=== PATIENT | female | born 1990 | race Caucasian/White ===

== ENCOUNTER 2017-12-09 19:54 | Emergency (ER) | payer OTHER ==
[~2017-12-09] VITALS: Ht 165.1 cm; Wt 72.6 kg
[~2017-12-09 19:54] MED LIST: ALPR1 PO; Bactrim Ds Tab1 EACH PO; CLON.1 PO; Cymbalta60 MG PO; DENIES; DULO60; ESCI10 PO; Lexapro 10 mg T10 MG PO; Minipress1 MG PO; PARO20 PO; PAXIL40 MG PO; PRAZ1 PO; PRAZ5; PRAZ5 PO; PROM25 PO; PROM6.25SY PO; Percocet 5-3251 EACH PO; Pyridium200 MG PO; QUET25 PO; TRAZ100 PO; Vistaril25 MG PO; Zithromax250 MG PO; Zofran Odt4 MG SL; [UNRECOGNIZED DRUG - REMARK] PO
[2017-12-09] MEDS ORDERED: ESCI10 PO (20:19)
[2017-12-09] MEDS ORDERED: AMPDEX10CR PO (22:27)
== END 2017-12-10 00:15 | disposition home or self-care (01) ==
LOC: ER 19:54
DX: F41.0 Panic disorder [episodic paroxysmal anxiety] (principal); F31.9 Bipolar disorder, unspecified; Z79.899 Other long term (current) drug therapy; Z87.891 Personal history of nicotine dependence
CPT/HCPCS: 93005; 93010; 99284

== ENCOUNTER 2018-02-28 12:20 | Emergency (ER) | payer OTHER ==
[~2018-02-28] VITALS: Ht 165.1 cm; Wt 59.0 kg
[~2018-02-28 12:20] MED LIST changes: +AMPDEX10CR PO
[2018-02-28] MEDS ORDERED: Zofran4 MG PO (12:39)
[2018-02-28 12:41] LABS: Source, Urine Clean Catch
[2018-02-28 12:45] LABS: Bilirubin, Urine Neg (Neg); Blood, Urine Neg (Neg); Glucose Qualitative, Urine Neg (Neg); Ketones, Urine Neg (Neg); Leukocyte Esterase, Urine Neg (Neg); Nitrite, Urine Neg (Neg); Protein, Urine Neg (Neg); Specific Gravity, Urine 1.015 (1.003-1.022); Urobilinogen, Urine NORM (Normal)
[2018-02-28 13:17] LABS: Appearance, Urine Clear (Clear); Color, Urine Yellow (P-Yellow)
== END 2018-02-28 12:43 | disposition home or self-care (01) ==
LOC: ER 12:20
PROVIDERS: Physician Assistant
DX: Z32.02 Encounter for pregnancy test, result negative (principal); R11.0 Nausea; F17.200 Nicotine dependence, unspecified, uncomplicated
CPT/HCPCS: 81003; 81025; 99283

== ENCOUNTER 2018-07-16 13:34 | Emergency (ER) | payer OTHER ==
[~2018-07-16] VITALS: Ht 167.6 cm; Wt 59.0 kg
[~2018-07-16 13:34] MED LIST changes: +Flonase 0.05% N16 GM; +Verotin-Gr Cap1 EACH PO; +Zofran4 MG PO
[2018-07-16 13:59] LABS: BASOPHILS ABSOLUTE AUTO 0.02 K/mm3 (0.00-0.23); BASOPHILS PERCENT AUTO 0 % (0-2); EOSINOPHILS ABSOLUTE AUTO 0.03 K/mm3 (0.00-0.68); EOSINOPHILS PERCENT AUTO 0 % (0-6); Hematocrit 34.4 % (33.0-51.0); Hemoglobin 11.7 g/dL (11.5-16.0); IMMATURE GRAN ABSOLUTE AUTO 0.04 K/mm3 (0.00-0.10); IMMATURE GRAN PERCENT AUTO 0 % (0-1); LYMPHOCYTES ABSOLUTE AUTO 0.52 K/mm3 (0.84-5.20); LYMPHOCYTES PERCENT AUTO 5 % (21-46); MONOCYTES ABSOLUTE AUTO 0.28 K/mm3 (0.16-1.47); MONOCYTES PERCENT AUTO 3 % (4-13); Mean Corpuscular HGB 31.7 pg (26.0-34.0); Mean Corpuscular Volume 93 fL (80-100); Mean Platelet Volume 9.2 fL (9.1-12.4); NEUTROPHILS ABSOLUTE AUTO 9.96 K/mm3 (1.96-9.15); NEUTROPHILS PERCENT AUTO 92 % (41-73); Platelet Count 252 K/mm3 (150-400); RDW Coefficient Variation 12.9 % (11.7-14.2); RDW Standard Deviation 44.2 fL (35.1-46.3); Red Blood Cell Count 3.69 M/mm3 (3.80-5.20); White Blood Cell Count 10.85 K/mm3 (4.00-11.30)
[2018-07-16 14:20] LABS: Alanine Aminotransfer (ALT/SGP 23 U/L (12-78); Albumin, Blood 3.3 g/dL (3.4-5.0); Albumin/Globulin Ratio 0.8 (0.8-1.8); Alk Phos 39 U/L (50-136); Anion Gap 11 mmol/L (6-16); Aspartate Aminotrans (AST/SGOT 15 U/L (12-37); Bilirubin, Total 0.7 mg/dL (0.1-1.0); Blood Urea Nitrogen 9 mg/dL (8-24); CO2, Blood 22 mmol/L (21-32); Calcium, Blood 8.1 mg/dL (8.5-10.1); Chloride, Blood 104 mmol/L (98-108); Globulin, Blood 3.9 g/dL (2.2-4.0); Glomerular Filtration Rate >60 (60-); Glucose, Blood 91 mg/dL (70-99); Potassium, Blood 3.8 mmol/L (3.5-5.5); Sodium, Blood 137 mmol/L (136-145); Total Protein, Blood 7.2 g/dL (6.4-8.2)
[2018-07-16 15:01] LABS: Source, Urine Clean Catch
[2018-07-16 15:11] LABS: Appearance, Urine Cloudy (Clear); Bilirubin, Urine Neg (Neg); Blood, Urine 1+ (Neg); Color, Urine Yellow (P-Yellow); Glucose Qualitative, Urine Neg (Neg); Ketones, Urine 4+ (Neg); Leukocyte Esterase, Urine 3+ (Neg); Nitrite, Urine Neg (Neg); Protein, Urine 2+ (Neg); Urobilinogen, Urine NORM (Normal); pH, Urine 6.5 (5.0-8.0)
[2018-07-16 15:20] LABS: Bacteria Few /hpf; Red Blood Cells, Urine Not Seen /hpf (0-2); Squamous Epithelial Cells Many /hpf (Few)
[2018-07-16] MEDS ORDERED: Zofran4 MG PO (16:24)
[2018-07-16] MEDS ORDERED: Pepcid40 MG PO (16:24)
== END 2018-07-16 17:21 | disposition home or self-care (01) ==
LOC: ER 13:34
PROVIDERS: Emergency Medicine
DX: O99.282 Endocrine, nutritional and metabolic diseases complicating pregnancy, second trimester (principal); E86.0 Dehydration; O21.9 Vomiting of pregnancy, unspecified; O99.342 Other mental disorders complicating pregnancy, second trimester; F31.9 Bipolar disorder, unspecified; F41.9 Anxiety disorder, unspecified; F20.9 Schizophrenia, unspecified; Z3A.19 19 weeks gestation of pregnancy
CPT/HCPCS: 36415; 80053; 81001; 85025; 87086; 96361; 96374; 96375; 99284-25; J2405; J7120

== ENCOUNTER → 2018-11-13 | Outpatient (CLI) | payer OTHER ==
[~2018-11-13] MED LIST changes: +Pepcid40 MG PO
== END | disposition home or self-care (01) ==
LOC: LAB 12:03 → LAB SHORT 12:03
DX: Z34.80 Encounter for supervision of other normal pregnancy, unspecified trimester (principal)
CPT/HCPCS: 87081; 87653

== ENCOUNTER 2018-12-08 06:47 | Inpatient (IN) | payer OTHER ==
[~2018-12-08] VITALS: Ht 167.6 cm; Wt 84.3 kg
[2018-12-08 08:33] LABS: BASOPHILS ABSOLUTE AUTO 0.01 K/mm3 (0.00-0.23); BASOPHILS PERCENT AUTO 0 % (0-2); EOSINOPHILS ABSOLUTE AUTO 0.09 K/mm3 (0.00-0.68); EOSINOPHILS PERCENT AUTO 1 % (0-6); Hemoglobin 11.4 g/dL (11.5-16.0); IMMATURE GRAN ABSOLUTE AUTO 0.02 K/mm3 (0.00-0.10); IMMATURE GRAN PERCENT AUTO 0 % (0-1); LYMPHOCYTES ABSOLUTE AUTO 1.77 K/mm3 (0.84-5.20); LYMPHOCYTES PERCENT AUTO 26 % (21-46); MONOCYTES ABSOLUTE AUTO 0.42 K/mm3 (0.16-1.47); MONOCYTES PERCENT AUTO 6 % (4-13); Mean Corpuscular HGB 29.1 pg (26.0-34.0); Mean Corpuscular HGB Conc 32.6 g/dL (31.5-36.5); Mean Corpuscular Volume 89 fL (80-100); NEUTROPHILS ABSOLUTE AUTO 4.42 K/mm3 (1.96-9.15); NEUTROPHILS PERCENT AUTO 66 % (41-73); Platelet Count 250 K/mm3 (150-400); RDW Coefficient Variation 13.1 % (11.7-14.2); RDW Standard Deviation 42.4 fL (35.1-46.3); Red Blood Cell Count 3.92 M/mm3 (3.80-5.20); White Blood Cell Count 6.73 K/mm3 (4.00-11.30)
[2018-12-08] MEDS ORDERED: CHOL10002 PO (08:38)
[2018-12-08] MEDS ORDERED: IRON150C (08:39)
--- NOTE | 2018-12-09 05:05 | NUR ---
PATIENT REFUSING TO HAVE LABS DRAWN. STATES SHE HAD LABS DRAW BEFORE AND DOESN'T WANT THEM DONE AGAIN.
--- NOTE | 2018-12-09 07:47 | NUR ---
DISCUSSED AND EDUCATED PT ON WHY MORNING LABS ARE DRAWN ON PATIENTS. PT IS NOT WILLING TO GET AM LABS TAKEN. LAB CALLED AND REQUESTED IT BE COMPLETED.
[2018-12-09 08:49] LABS: Hematocrit 33.3 % (33.0-51.0); Mean Corpuscular HGB 29.6 pg (26.0-34.0); Mean Corpuscular Volume 90 fL (80-100); Mean Platelet Volume 10.3 fL (9.1-12.4); Platelet Count 228 K/mm3 (150-400); RDW Standard Deviation 42.3 fL (35.1-46.3); Red Blood Cell Count 3.72 M/mm3 (3.80-5.20); White Blood Cell Count 8.65 K/mm3 (4.00-11.30)
--- NOTE | 2018-12-10 11:20 | NUR ---
CORE NURSE HER TO SEE PATIENT
[2018-12-11] MEDS ORDERED: IBUP800 PO (11:04)
--- NOTE | 2018-12-11 12:30 | NUR ---
Pt declined verbal discharge instructions, states she read printed ones and has no questions. ID bands matched w/nb. Pt d/c'd home ambulatory to care of [facility].
== END 2018-12-11 12:42 | disposition home or self-care (01) | DRG 807 ==
LOC: OBS 06:47 → BC 06:51 → OBS 07:30 → BC 07:32
PROVIDERS: ADMIT Family Medicine
PROC: 10E0XZZ Delivery of Products of Conception, External Approach (ICD-10-PCS; principal; 2018-12-08)
PROC: 3E033VJ Introduction of Other Hormone into Peripheral Vein, Percutaneous Approach (ICD-10-PCS; 2018-12-08)
DX: O80 Encounter for full-term uncomplicated delivery (principal); Z37.0 Single live birth; Z3A.39 39 weeks gestation of pregnancy
CPT/HCPCS: 36415; 85025; 85027; A9270; J1885; J2001; J2405; J2590; J3010; J7120

== ENCOUNTER → 2019-01-30 | Outpatient (CLI) | payer OTHER ==
[~2019-01-30] MED LIST changes: +CHOL10002 PO; +IBUP800 PO; +IRON150C
== END | disposition home or self-care (01) ==
LOC: LAB EV 15:29 → LAB SHORT 15:29
DX: N39.0 Urinary tract infection, site not specified (principal)
CPT/HCPCS: 87086

== ENCOUNTER 2019-02-14 14:11 | Emergency (ER) | payer OTHER ==
[~2019-02-14] VITALS: Ht 165.1 cm; Wt 63.5 kg
[2019-02-14 15:07] LABS: Source, Urine Clean Catch
[2019-02-14 15:22] LABS: Appearance, Urine Hazy (Clear); Bilirubin, Urine Neg (Neg); Blood, Urine Neg (Neg); Color, Urine Yellow (P-Yellow); Glucose Qualitative, Urine Neg (Neg); Ketones, Urine Neg (Neg); Leukocyte Esterase, Urine 1+ (Neg); Nitrite, Urine Neg (Neg); Protein, Urine Neg (Neg); Urobilinogen, Urine NORM (Normal)
[2019-02-14 15:33] LABS: Bacteria Mod /hpf; Red Blood Cells, Urine 0-2 /hpf (0-2); Squamous Epithelial Cells Mod /hpf (Few)
== END 2019-02-14 15:50 | disposition home or self-care (01) ==
LOC: ER 14:11
PROVIDERS: Physician Assistant
DX: S60.042A Contusion of left ring finger without damage to nail, initial encounter (principal); F17.200 Nicotine dependence, unspecified, uncomplicated; Z79.899 Other long term (current) drug therapy; W19.XXXA Unspecified fall, initial encounter
CPT/HCPCS: 73140; 81001; 81025; 87086; 99283-25

== ENCOUNTER 2019-02-23 15:26 | Emergency (ER) | payer OTHER ==
[~2019-02-23] VITALS: Ht 162.6 cm; Wt 59.0 kg
== END 2019-02-23 16:43 | disposition home or self-care (01) ==
LOC: ER 15:26
DX: Z32.02 Encounter for pregnancy test, result negative (principal); F17.200 Nicotine dependence, unspecified, uncomplicated; Z79.899 Other long term (current) drug therapy
CPT/HCPCS: 81025; 99282

== ENCOUNTER 2020-07-17 05:17 | Inpatient (IN) | payer OTHER ==
[~2020-07-17] VITALS: Ht 165.1 cm; Wt 90.9 kg
[2020-07-17] MEDS ORDERED: ONDA4ODT MM (05:54)
[2020-07-17 06:12] LABS: BASOPHILS ABSOLUTE AUTO 0.02 K/mm3 (0.00-0.23); BASOPHILS PERCENT AUTO 0 % (0-2); EOSINOPHILS ABSOLUTE AUTO 0.07 K/mm3 (0.00-0.68); EOSINOPHILS PERCENT AUTO 1 % (0-6); Hematocrit 31.3 % (33.0-51.0); IMMATURE GRAN ABSOLUTE AUTO 0.04 K/mm3 (0.00-0.10); IMMATURE GRAN PERCENT AUTO 1 % (0-1); LYMPHOCYTES PERCENT AUTO 25 % (21-46); MONOCYTES ABSOLUTE AUTO 0.43 K/mm3 (0.16-1.47); MONOCYTES PERCENT AUTO 6 % (4-13); Mean Corpuscular HGB 27.9 pg (26.0-34.0); Mean Corpuscular HGB Conc 31.9 g/dL (31.5-36.5); Mean Corpuscular Volume 87 fL (80-100); NEUTROPHILS ABSOLUTE AUTO 5.23 K/mm3 (1.96-9.15); NEUTROPHILS PERCENT AUTO 68 % (41-73); Platelet Count 255 K/mm3 (150-400); RDW Coefficient Variation 13.6 % (11.7-14.2); RDW Standard Deviation 43.5 fL (35.1-46.3); Red Blood Cell Count 3.58 M/mm3 (3.80-5.20); White Blood Cell Count 7.69 K/mm3 (4.00-11.30)
[2020-07-17 07:04] LABS: U Amphetamine Screen Not Detected; U Barbituate Screen Not Detected; U Benzodiazapine Screen Not Detected; U Buprenorphine Screen Not Detected; U Cannabinoids Screen DETECTED; U Cocaine Screen Not Detected; U Methadone Screen Not Detected; U Methamphetamine Screen Not Detected; U Opiates Screen Not Detected; U Oxycodone Screen Not Detected; U Phencyclidine Screen Not Detected; U Propoxyphene Screen Not Detected
[2020-07-18] MEDS ORDERED: IBU800 MG PO (09:58)
--- NOTE | 2020-07-18 11:39 | NUR ---
ASSIST DEMONSTRATED FOOT BALL AND CROSS LATCH , WE WOKE BABY AND PLACED HER AT BREAST MOM WITH LOTS OF QUESIONS.
[2020-07-18 13:09] LABS: Hematocrit 31.2 % (33.0-51.0); Hemoglobin 10.1 g/dL (11.5-16.0); Mean Corpuscular HGB 28.3 pg (26.0-34.0); Mean Corpuscular HGB Conc 32.4 g/dL (31.5-36.5); Mean Corpuscular Volume 87 fL (80-100); Mean Platelet Volume 10.2 fL (9.1-12.4); Platelet Count 212 K/mm3 (150-400); RDW Coefficient Variation 13.7 % (11.7-14.2); RDW Standard Deviation 43.7 fL (35.1-46.3); Red Blood Cell Count 3.57 M/mm3 (3.80-5.20); White Blood Cell Count 11.33 K/mm3 (4.00-11.30)
--- NOTE | 2020-07-19 12:36 | NUR ---
DISCHARGE MOTHER EDUCATED ON MATERNAL AND DISCHARGE INSTRUCTIONS AND VERBALIZED AN UNDERSTANDING. HARD RX FOR MOTRIN GIVEN TO MOTHER. EDUCATED ON MARIJUANA CESSATION DURING BREAST FEEDING. MOTHER VERBALIZED AN UNDERSTANDING. CSD CLEARED BABY TO GO HOME WITH MOTHER. LETTER IN CHART. MOTHER AND BABY'S BANDS MATCHED. ESCORTED OUT TO VEHICLE WITH ALL PERSONAL BELONGINGS.
== END 2020-07-19 12:31 | disposition home or self-care (01) | DRG 807 ==
LOC: OBS 05:17 → BC 05:19 → OBS 05:30 → BC 05:34
PROVIDERS: ADMIT Obstetrics & Gynecology
PROC: 10H07YZ Insertion of Other Device into Products of Conception, Via Natural or Artificial Opening (ICD-10-PCS; 2020-07-17)
PROC: 10907ZC Drainage of Amniotic Fluid, Therapeutic from Products of Conception, Via Natural or Artificial Opening (ICD-10-PCS; 2020-07-17)
PROC: 3E033VJ Introduction of Other Hormone into Peripheral Vein, Percutaneous Approach (ICD-10-PCS; 2020-07-17)
PROC: 3E0R3BZ Introduction of Anesthetic Agent into Spinal Canal, Percutaneous Approach (ICD-10-PCS; 2020-07-17)
PROC: 00HU33Z Insertion of Infusion Device into Spinal Canal, Percutaneous Approach (ICD-10-PCS; 2020-07-17)
PROC: 10D07Z6 Extraction of Products of Conception, Vacuum, Via Natural or Artificial Opening (ICD-10-PCS; principal; 2020-07-18)
DX: O76 Abnormality in fetal heart rate and rhythm complicating labor and delivery (principal); Z37.0 Single live birth; O69.81X0 Labor and delivery complicated by cord around neck, without compression, not applicable or unspecified; Z3A.39 39 weeks gestation of pregnancy; O66.5 Attempted application of vacuum extractor and forceps; Z20.822 Contact with and (suspected) exposure to COVID-19; O99.02 Anemia complicating childbirth; D64.9 Anemia, unspecified; O99.344 Other mental disorders complicating childbirth; F41.9 Anxiety disorder, unspecified; Z87.891 Personal history of nicotine dependence
CPT/HCPCS: 0241U; 36415; 51702; 59070; 85025; 85027; 86850; 86900; 86901; A9270; G0480; J1885; J2001; J2210; J2405; J2550; J2590; J3010; J7030; J7120

== ENCOUNTER → 2021-08-26 | Outpatient (CLI) | payer OTHER ==
[~2021-08-26] MED LIST changes: +IBU800 MG PO; +ONDA4ODT MM
== END | disposition home or self-care (01) ==
LOC: LAB SHORT 16:34 → LAB 16:34
DX: O09.293 Supervision of pregnancy with other poor reproductive or obstetric history, third trimester (principal); O09.893 Supervision of other high risk pregnancies, third trimester
CPT/HCPCS: 87081; 87150

== ENCOUNTER 2021-09-09 05:38 | Inpatient (IN) | payer OTHER ==
[~2021-09-09] VITALS: Ht 165.1 cm; Wt 80.9 kg
[2021-09-09 06:33] LABS: U Amphetamine Screen Not Detected; U Barbituate Screen Not Detected; U Benzodiazapine Screen Not Detected; U Buprenorphine Screen Not Detected; U Cannabinoids Screen DETECTED; U Cocaine Screen Not Detected; U Methadone Screen Not Detected; U Methamphetamine Screen Not Detected; U Opiates Screen Not Detected; U Oxycodone Screen Not Detected; U Phencyclidine Screen Not Detected; U Propoxyphene Screen Not Detected
[2021-09-09] MEDS ORDERED: ONDA4 PO (06:52)
[2021-09-09] MEDS ORDERED: ALPR.25 (06:53)
[2021-09-09 06:54] LABS: Influenza A, PCR NEGATIVE (NEGATIVE); Influenza B, PCR NEGATIVE (NEGATIVE); Resp Syncytial Virus, PCR NEGATIVE (NEGATIVE); SARS-Cov-2 (COVID-19) PCR, MMC NEGATIVE (NEGATIVE)
[2021-09-09] MEDS ORDERED: PRENATAL TABLE1 EAC2 (06:54)
[2021-09-09 07:43] LABS: BASOPHILS ABSOLUTE AUTO 0.01 K/mm3 (0.00-0.23); BASOPHILS PERCENT AUTO 0 % (0-2); EOSINOPHILS ABSOLUTE AUTO 0.05 K/mm3 (0.00-0.68); EOSINOPHILS PERCENT AUTO 1 % (0-6); Hematocrit 31.4 % (33.0-51.0); Hemoglobin 9.8 g/dL (11.5-16.0); IMMATURE GRAN ABSOLUTE AUTO 0.02 K/mm3 (0.00-0.10); IMMATURE GRAN PERCENT AUTO 0 % (0-1); LYMPHOCYTES ABSOLUTE AUTO 1.74 K/mm3 (0.84-5.20); LYMPHOCYTES PERCENT AUTO 29 % (21-46); MONOCYTES ABSOLUTE AUTO 0.34 K/mm3 (0.16-1.47); MONOCYTES PERCENT AUTO 6 % (4-13); Mean Corpuscular HGB 25.8 pg (26.0-34.0); Mean Corpuscular HGB Conc 31.2 g/dL (31.5-36.5); Mean Corpuscular Volume 83 fL (80-100); Mean Platelet Volume 9.8 fL (9.1-12.4); NEUTROPHILS ABSOLUTE AUTO 3.81 K/mm3 (1.96-9.15); NEUTROPHILS PERCENT AUTO 64 % (41-73); Platelet Count 258 K/mm3 (150-400); RDW Coefficient Variation 14.6 % (11.7-14.2); RDW Standard Deviation 43.4 fL (35.1-46.3); White Blood Cell Count 5.97 K/mm3 (4.00-11.30)
--- NOTE | 2021-09-09 17:09 | NUR ---
Spiritual care visit attempted. Pt. requested spiritual care visit. After consulting with Nursing staff, Pt. is in active labor. Will attempt later.
--- NOTE | 2021-09-10 08:04 | NUR ---
pt had a thick banded ring that yoan rn and uzair rn cut off with ring cutter per pt request, her fingers and knuckle were so swollen couldnt remove the ring, applied pressure to swollen area and knuckle so could get tool under ring. this ring was on her rt hand ring (4th finger over from thumb) pt has mod swelling to hands, and has a few other rings on, encouraged to use pressure and soap to get rings off or could cut them off. all the rings left on you can turn, but they are making a indent in her skin. pt is aware and verbalized understanding and is aware swelling could get worse before getting better in the next 1-2 weeks. pt asked questions about cps, aware rn will call, and will let her know when they call back what their plan is.
--- NOTE | 2021-09-10 09:42 | NUR ---
Pt. is awake and in bed. Pt. welcomes my visit. Family member is present, and baby is asleep. Pt. requested a blessing for her and the baby. Established rapport and pastorally prayed for pt., baby, and family. Pt. displayed evidence of significance and meaning. Pt. verbalized gratitude for the spiritual care visit.
[2021-09-10] MEDS ORDERED: IBUP800 PO (13:51)
--- NOTE | 2021-09-10 16:08 | NUR ---
DC HOME WITH BABY, WENT OVER DC INSTRUCTIONS, BUT SHE WASNT LISTENING THAT WELL, SHE WAS PACKING UP HER ROOM AND WANTED TO SPEED UP DC TEACHING SO SHE CAN GET HOME TO HER OTHER KIDS. BABY IS ALREADY IN A CAR SEAT WAITING TO GO. ENCOURAGED HER TO CALL WITH QUESTIONS
--- NOTE | 2021-09-13 14:13 | NUR ---
LATE ENTRY UPDATED L&D SUMMARY PER EMR & LW RN
--- NOTE | 2021-09-14 11:51 | NUR ---
PPFU. PT DID NOT SHOW FOR SCHEDULED PPFU ON 09-13-21 AT 1100. RN LEFT MSG AT 1119. PT DID NOT RETURN CALL, RN CALLED AGAIN AT 1513, PT ANSWERED AND STATES SHE IS IN THE PROCESS OF MOVING SO SHE FORGOT HER APPOINTMENT AND RESCHEDULED FOR 09-14-21 AT 1100. PT DID NOT COME TO RESCHEDULED APPOINTMENT TODAY, 09-14-21 AT 1100. PT CALLED AND LEFT A MSG. PT RETURNED RN PHONE CALL, WAS HARD TO UNDERSTAND, SEEMED TO BE SLURRING WORDS. PT STATES SHE WAS GATHERING THINGS TO GO, THEN STATES SHE CALLED [facility] TO RESCHEDULE TODAY'S APPOINTMENT, PT COULD NOT SAY THE DAY OR TIME THAT THE APPOINTMENT GOT RESCHEDULED FOR, STATES FOR RN TO GO FIGURE IT OUT AND HUNG UP PHONE. RN CHECKED SCHEDULE AND TALKED W/ TINNER HELPER, NO PHONE CALL FROM PT WAS RECIEVE AND NO NEW APPOINTMENTS WERE SCHEDULED. RN CONTACTED CPS MOM HAS HISTORY W/ CPS PER GENERATED REPORT FROM STAY AT [facility] TO DELIVER NB. CPS TO FURTHER INVESTIGATE, SCREENING REPORT NUMBER [id number].
--- NOTE | 2021-09-15 08:39 | NUR ---
AMADO W/ [facility]PS CALLED. RN UPDATED HIM ON F/U HX AND NO SHOW TO APPOINTMENTS.
== END 2021-09-10 16:09 | disposition home or self-care (01) | DRG 806 ==
LOC: OBS 05:38 → BC 05:40 → OBS 05:45 → BC 05:47
PROVIDERS: ADMIT Obstetrics & Gynecology
PROC: 10E0XZZ Delivery of Products of Conception, External Approach (ICD-10-PCS; principal; 2021-09-09)
PROC: 3E033VJ Introduction of Other Hormone into Peripheral Vein, Percutaneous Approach (ICD-10-PCS; 2021-09-09)
PROC: 00HU33Z Insertion of Infusion Device into Spinal Canal, Percutaneous Approach (ICD-10-PCS; 2021-09-09)
PROC: 3E0R3BZ Introduction of Anesthetic Agent into Spinal Canal, Percutaneous Approach (ICD-10-PCS; 2021-09-09)
PROC: 3E0R3NZ Introduction of Analgesics, Hypnotics, Sedatives into Spinal Canal, Percutaneous Approach (ICD-10-PCS; 2021-09-09)
PROC: 10H07YZ Insertion of Other Device into Products of Conception, Via Natural or Artificial Opening (ICD-10-PCS; 2021-09-09)
DX: O99.02 Anemia complicating childbirth (principal); O99.324 Drug use complicating childbirth; Z37.0 Single live birth; D50.9 Iron deficiency anemia, unspecified; F12.90 Cannabis use, unspecified, uncomplicated; O76 Abnormality in fetal heart rate and rhythm complicating labor and delivery; Z20.822 Contact with and (suspected) exposure to COVID-19; O99.344 Other mental disorders complicating childbirth; F41.9 Anxiety disorder, unspecified; Z67.20 Type B blood, Rh positive; Z3A.39 39 weeks gestation of pregnancy; Z98.890 Other specified postprocedural states; Z87.891 Personal history of nicotine dependence
CPT/HCPCS: 0241U; 36415; 51702; 85025; 86850; 86900; 86901; A9270; J1885; J2001; J2405; J3010; J7120

== ENCOUNTER → 2023-03-31 | Outpatient (CLI) | payer OTHER ==
[~2023-03-31] MED LIST changes: +ALPR.25; +ONDA4 PO; +PRENATAL TABLE1 EAC2
[2023-04-02 00:10] LABS: CHLAMYDIA TRACHOMATIS, NAA Negative (Negative)
== END | disposition home or self-care (01) ==
LOC: LAB 14:38 → LAB SHORT 14:38
PROVIDERS: Advanced Practice Midwife
DX: Z11.3 Encounter for screening for infections with a predominantly sexual mode of transmission (principal)
CPT/HCPCS: 87491; 87591

== ENCOUNTER → 2024-10-30 | Outpatient (CLI) | payer OTHER ==
[2024-11-09 07:56] LABS: HPV HIGH RISK BY TMA Not Detected; HPV SOURCE Cervical/Vag
== END | disposition home or self-care (01) ==
LOC: LAB 13:45 → LAB SHORT 13:45
PROVIDERS: Advanced Practice Midwife
DX: Z01.419 Encounter for gynecological examination (general) (routine) without abnormal findings (principal)
CPT/HCPCS: 87624; G0123